=== PATIENT | male | born 1955 | race Caucasian/White ===

== ENCOUNTER 2018-01-15 05:09 | Inpatient (IN) | payer MEDICARE ==
[~2018-01-15 05:09] MED LIST: Ropivacaine 60 ML, Dexamethasone 8 MG, EPINEPHrine 0.4 MG, Sodium Chloride 0.9% 17.6 ML NERVRT SCH
[2018-01-15] MEDS ORDERED: Scopolamine 1.5 MG Transdermal Patch TOP SCH (05:45)
[2018-01-15] MEDS ORDERED: Gabapentin 300 MG Cap PO ONE (05:45)
[2018-01-15] MEDS ORDERED: Celecoxib 200 MG Cap PO ONE (05:45)
[2018-01-15] MEDS ORDERED: Dextrose 5%-Lactated Ringers 1,000 ML IV SCH ×3 (06:30→19:30)
[2018-01-15] MEDS ORDERED: Neostigmine Methylsulfate 1 MG/ML 5 ML Syringe ONE (07:14)
[2018-01-15] MEDS ORDERED: Rocuronium 50 MG/5 ML Vial ONE ×2 (07:14→08:44)
[2018-01-15] MEDS ORDERED: Propofol 200 MG/20 ML SDV ONE (07:14)
[2018-01-15] MEDS ORDERED: Ondansetron 4 MG/2 ML SDV ONE (07:14)
[2018-01-15] MEDS ORDERED: Dexamethasone 4 MG/ML SDV ONE (07:14)
[2018-01-15] MEDS ORDERED: Succinylcholine 200 MG/10 ML MDV ONE (07:14)
[2018-01-15] MEDS ORDERED: Glycopyrrolate 0.2 MG/ML 5 ML MDV ONE (07:14)
[2018-01-15] MEDS ORDERED: cefOXitin 2 GM in Sodium Chloride 0.9% 50 ML IV ONE (07:15)
[2018-01-15] MEDS ORDERED: Lactated Ringers 1,000 ML ONE (07:17)
[2018-01-15] MEDS ORDERED: Ketamine 500 MG/5 ML MDV IV SCH (07:30)
[2018-01-15] MEDS ORDERED: Lidocaine 0.4%/D5W 2 GM/500 ML BAG IV SCH (07:30)
[2018-01-15] MEDS ORDERED: Lidocaine 2% 100 MG/5 ML Syringe IVPUSH ONE (07:30)
[2018-01-15] MEDS ORDERED: ePHEDrine 50 MG/ML SDV ONE (08:10)
[2018-01-15] MEDS: cefOXitin 2 GM Vial ONE ×3 (08:28→09:45)
[2018-01-15] MEDS ORDERED: Insulin Aspart 100 Units/ML 3 ML Pen SUBCUT ONE (10:20)
[2018-01-15] MEDS ORDERED: Albuterol/Ipratropium 3.0-0.5 MG/3 ML Neb Soln NEB PRN (11:45)
[2018-01-15] MEDS ORDERED: Meperidine PF 100 MG/ML Syringe IM ONE (11:50)
[2018-01-15] MEDS ORDERED: hydrOXYzine HCl 100 MG/2 ML SDV IM ONE (11:50)
[2018-01-15] MEDS: Albuterol/Ipratropium 3.0-0.5 MG/3 ML Neb Soln NEB SCH ×4 (11:59→23:57)
[2018-01-15] MEDS ORDERED: Furosemide 20 MG/2 ML VIAL IVPUSH ONE (12:00)
[2018-01-15] MEDS ORDERED: Insulin Aspart 100 Units/ML 3 ML Pen SUBCUT PRN (12:00)
[2018-01-15] MEDS ORDERED: 50% Dextrose in Water 50 ML Syringe IVPUSH PRN (12:00)
[2018-01-15] MEDS ORDERED: Labetalol 20 MG/4 ML Syringe IVPUSH PRN (12:00)
[2018-01-15] MEDS ORDERED: diphenhydrAMINE 50 MG/ML SDV IVPUSH PRN (12:00)
[2018-01-15] MEDS ORDERED: Metoclopramide 10 MG/2 ML SDV IVPUSH PRN (12:00)
[2018-01-15] MEDS ORDERED: Glucagon,Human Recombinant 1 MG Vial IM PRN (12:00)
[2018-01-15] MEDS ORDERED: Ondansetron 4 MG/2 ML SDV IVPUSH PRN (12:00)
[2018-01-15] MEDS ORDERED: Gabapentin 250 MG/5 ML Solution ML 470 ML Bottle PO SCH (14:00)
[2018-01-15] MEDS: cefOXitin 2 GM in Sodium Chloride 0.9% 50 ML IV SCH ×2 (14:38→20:46)
[2018-01-15] MEDS: Pantoprazole 40 MG Vial IVPUSH SCH (14:43)
[2018-01-15] MEDS: Heparin Sodium 5,000 Units/ML Vial SUBCUT SCH (15:42)
[2018-01-15] MEDS ORDERED: MVI, Adult with Vitamin K 10 ML, Thiamine 200 MG, Chromium/Copper/Mang/Selen/Zn 1 ML in... IV SCH ×4 (16:00)
[2018-01-15] MEDS ORDERED: Furosemide 20 MG/2 ML VIAL IVPUSH STA (18:47)
[2018-01-15] MEDS ORDERED: Lidocaine 2% Jelly 10 ML Urojet MUCMEM ONE (19:00)
--- NOTE | 2018-01-15 19:52 | PCM.CONS ---
H&P History of Present Illness - General Date of Service: 01/15/18 Admit Problem/Dx: Admission Diagnosis/Problem Admission Diagnosis/Problem Bc-en-Y gastrojejunostomy Source of Information: Patient, RN History Limitations: Reports: No Limitations - History of Present Illness Initial Comments - Free Text/Narative: Gareth was admitted today for elective Bc-en-Y gastric bypass surgery. Postoperatively he has struggled with hypoxia which has worsened throughout the evening. I was asked to see him by Dr. Gutierres regarding hypoxic respiratory failure. Postoperatively initially he was on 6 L and then weaned down to 5 but over the course of the evening is now up to 8 L via simple mask. He has received 2 doses of furosemide, one very recently. Urine output since surgery has been around 1900 mL. He has not had any fevers. Blood pressure has been stable. Heart rate has been slowly increasing and is now around 110. He does not feel short of breath currently but did feel short of breath and was wheezing earlier in the evening. He does not have any abdominal pain currently. No nausea. He reports a history of swollen legs but has never been told that he has congestive heart failure. He did have an echocardiogram in November which showed a normal ejection fraction, concentric LVH and probably some diastolic dysfunction. Lower Back Pain Score (Numeric/FACES): 3 Left Abdomen Pain Score (Numeric/FACES): 8 - Related Data Allergies/Adverse Reactions: Allergies Allergy/AdvReac Type Severity Reaction Status Date / Time acetaminophen Allergy Other Verified 01/15/18 06:08 Home Medications: Home Meds Celecoxib [CeleBREX] 200 mg PO DAILY 01/13/18 [History] Lisinopril 40 mg PO DAILY 01/13/18 [History] Metoprolol Tartrate [Lopressor] 50 mg PO Q12HR 01/13/18 [History] Simvastatin [Zocor] 20 mg PO DAILY 01/13/18 [History] hydroCHLOROthiazide [Hydrochlorothiazide] 25 mg PO DAILY 01/13/18 [History] Furosemide [Lasix] 20 mg PO DAILY 01/15/18 [History] Past Medical History HEENT History: Reports: Hard of Hearing Cardiovascular History: Reports: High Cholesterol, Hypertension, Other (See Below) Other Cardiovascular History: leg edema Respiratory History: Reports: Sleep Apnea Gastrointestinal History: Reports: Other (See Below) Other Gastrointestinal History: acid reflux Musculoskeletal History: Reports: Back Pain, Chronic, Fracture, Other (See Below ) Other Musculoskeletal History: fractured collar bone, torn ligaments Neurological History: Reports: Head Trauma Psychiatric History: Reports: Depression Endocrine/Metabolic History: Reports: Obesity/BMI 30+ - Infectious Disease History Infectious Disease History: Reports: Chicken Pox - Past Surgical History Musculoskeletal Surgical History: Reports: Other (See Below) Social & Family History - Family History Cardiac: Denies: CAD - Tobacco Use Smoking Status *Q: Former Smoker Years of Tobacco use: 6 Packs/Tins Daily: 0.2 Used Tobacco, but Quit: Yes Month/Year Tobacco Last Used: December Second Hand Smoke Exposure: No - Caffeine Use Caffeine Use: Reports: None - Alcohol Use Alcohol Use History: Yes - Recreational Drug Use Recreational Drug Use: No H&P Review of Systems - Review of Systems: Review Of Systems: See Below Free Text/Narrative: A complete 12 point review of systems was obtained. Pertinent positives and negatives are noted in the history of present illness. All other systems were reviewed and were negative except as noted. Exam - Exam Exam: See Below - Vital Signs Vital Signs: Last Vital Signs Temp 36.6 C 01/15/18 19:00 Pulse 107 H 01/15/18 19:00 Resp 20 01/15/18 19:00 BP 127/68 01/15/18 19:00 Pulse Ox 92 L 01/15/18 19:00 Weight: 198.946 kg - Exam Quality Assessment: Supplemental Oxygen General: Alert, Oriented, Cooperative, Mild Distress HEENT: Conjunctiva Clear, Mucosa Moist & [place]. No: Scleral Icterus Neck: Supple, Trachea Midline. No: Lymphadenopathy Lungs: Crackles (both bases), Wheezing (very mild end expiratory wheezing and upper lungs). No: Normal Respiratory Effort (mild increased work of breathing) Cardiovascular: Regular Rhythm, Tachycardia. No: Systolic Murmur, Gallop/S3 GI/Abdominal Exam: Soft, No Distention, Other (obese. abdominal binder in place) Extremities: Pedal Edema (very mild bilateral ankle edema). No: Increased Warmth Peripheral Pulses: 1+: Dorsalis Pedis (L), Dorsalis Pedis (R) Skin: Warm, Dry Neuro Extensive - Mental Status: Alert, Oriented x3, Nl Response to Commands Neuro Extensive - Motor, Sensory, Reflexes: CN II-XII Intact, Tremor. No: Dysarthria, Abnormal Motor Psychiatric: Alert, Normal Affect - Patient Data Lab Results Last 24 hrs: Laboratory Results - last 24 hr 01/15/18 01/15/18 Range/Units 05:45 05:45 Hemoglobin A1c 6.9 H (4.5-6.2) % Blood Type A POSITIVE Gel Antibody Screen Negative Imaging Impressions Last 24 hrs: chest x-ray - images personally reviewed - there is evidence for pulmonary vascular congestion as well as cephalization of the vessels concerning for pulmonary edema. Heart size is normal. No pleural effusions are noted. No mass or obvious infiltrate. Consult PN Assessment/Plan POD#: 0 Procedures: Procedures BLOOD TYPING SEROLOGIC ABO (10/16/17) BLOOD TYPING SEROLOGIC RH(D) (10/16/17) COMPLETE CBC W/AUTO DIFF WBC (07/04/16) COMPREHEN METABOLIC PANEL (07/04/16) CT HEAD/BRAIN W/O DYE (05/05/16) EMERGENCY DEPT VISIT (07/04/16) EMERGENCY DEPT VISIT (07/04/16) EMERGENCY DEPT VISIT (05/05/16) EMERGENCY DEPT VISIT (03/04/16) EMERGENCY DEPT VISIT (08/14/15) HYDRATE IV INFUSION ADD-ON (05/05/16) HYDRATION IV INFUSION INIT (05/05/16) INSERT TEMP BLADDER CATH (07/04/16) RBC ANTIBODY SCREEN (10/16/17) ROUTINE VENIPUNCTURE (07/04/16) URINALYSIS AUTO W/SCOPE (07/04/16) (1) Congestive heart failure SNOMED Code(s): 22117620 Code(s): I50.9 - HEART FAILURE, UNSPECIFIED Current Visit: Yes Qualifiers: Heart failure type: diastolic Heart failure chronicity: acute Qualified Code(s): I50.31 - Acute diastolic (congestive) heart failure (2) Acute respiratory failure with hypoxia and hypercapnia SNOMED Code(s): 369047430 Code(s): J96.01 - ACUTE RESPIRATORY FAILURE WITH HYPOXIA; J96.02 - ACUTE RESPIRATORY FAILURE WITH HYPERCAPNIA Current Visit: Yes Problem List Initiated/Reviewed/Updated: Yes My Orders Last 24 Hours: My Active Orders 01/15/18 18:51 ABG [BLOOD GAS ARTERIAL] [BG] Stat 01/15/18 19:30 Dextrose 5%-Lactated Ringers 1,000 ml IV ASDIRECTED 01/15/18 19:34 BASIC METABOLIC PANEL,BMP [CHEM] Urgent 01/15/18 19:42 Transfer Patient (Change bed) [ADT] Routine Plan: ASSESSMENT AND PLAN - Acute congestive heart failure, probably diastolic - acute hypoxic respiratory failure with evidence for pulmonary edema on chest x-ray as well as pulmonary vascular congestion. Recent echocardiogram showed normal left ventricular function but did show concentric LVH and probably some diastolic dysfunction. He seems to be responding to that small doses of furosemide but unfortunately his respiratory status has been slowly declining. He is now up to 8 L of oxygen. Blood gases show. Pérez catheter was unable to be placed. -Minimize IV fluids -Close monitoring of urine output -supplement oxygen -Consider NIPPV -Repeat labs in the morning Acute respiratory failure with hypoxia and hypercapnia - likely secondary to congestive heart failure. Given high oxygen requirement and significant elevation of the CO2 noninvasive ventilation will be initiated. -start NIPPV -repeat ABG's one hour after NIPPV started -NIPPV in the am Morbid obesity status post gastric bypass surgery - minimal pain at this time. -Postoperative cares per surgical team Type 2 diabetes mellitus - Hemoglobin A1c 6.9. Currently on sliding scale insulin. -Continue current management Given acute respiratory failure with slow decline throughout the evening the patient will be transferred to the intensive care unit for closer monitoring. He may need noninvasive ventilation if his respiratory status does not improve with diuresis. Roberth Quijano MD Requesting Provider: Dr Gutierres Date Consult Requested: 01/15/18 Reason for Consult: hypoxic resp failure Patient History Reviewed: Yes Admission H&P Reviewed: Yes Notified Requestor: No Time Spent (in minutes): 60
[2018-01-15] MEDS ORDERED: LORazepam 2 MG/ML SDV IVPUSH PRN (19:54)
[2018-01-15] MEDS: Metoprolol Tartrate 50 MG Tab PO SCH (21:30)
[2018-01-16] MEDS ORDERED: Furosemide 20 MG/2 ML VIAL IVPUSH ONE (02:00)
[2018-01-16] MEDS: Heparin Sodium 5,000 Units/ML Vial SUBCUT SCH ×4 (02:08→23:42)
[2018-01-16] MEDS: cefOXitin 2 GM in Sodium Chloride 0.9% 50 ML IV SCH ×3 (02:11→13:36)
[2018-01-16] MEDS: Albuterol/Ipratropium 3.0-0.5 MG/3 ML Neb Soln NEB SCH ×6 (04:14→23:42)
[2018-01-16] MEDS: Celecoxib 200 MG Cap PO SCH (08:19)
[2018-01-16] MEDS: Furosemide 20 MG/2 ML VIAL IVPUSH SCH ×2 (08:21→19:30)
[2018-01-16] MEDS: Metoprolol Tartrate 50 MG Tab PO SCH ×2 (08:24→21:06)
--- NOTE | 2018-01-16 08:39 | PCM.CONSN ---
- General Info Date of Service: 01/16/18 Functional Status: Reports: Pain Controlled - Review of Systems General: Denies: Fever Pulmonary: Reports: Cough Systems Review Comment:: patient did require noninvasive ventilation throughout the night. He has been transitioned to nasal cannula this morning at the time of my evaluation. Oxygen saturations are in the low 90s on 4 L of supplemental oxygen. He reports that he feels much better and is breathing easier. He reports that his abdominal pain is well-controlled at this time. He has not had any fevers. He has done well with diuresis overnight. His PCO2 to is down to 53 this morning. - Patient Data Vitals - Most Recent: Last Vital Signs Temp 37.6 C 01/16/18 07:00 Pulse 98 01/16/18 08:24 Resp 14 01/16/18 07:00 BP 119/64 01/16/18 08:24 Pulse Ox 93 L 01/16/18 07:00 Weight - Most Recent: 198.946 kg I&O - Last 24 Hours: Intake & Output 01/15/18 01/16/18 01/16/18 22:59 06:59 14:59 Intake Total 1000 943 Output Total 1550 1400 Balance -550 -457 Lab Results Last 24 Hours: Laboratory Results - last 24 hr 01/15/18 01/15/18 01/15/18 Range/Units 18:51 19:34 21:30 WBC (4.5-11.0) K/uL RBC (4.30-5.90) M/uL Hgb (12.0-15.0) g/dL Hct (40.0-54.0) % MCV (80-98) fL MCH (27-31) pg MCHC (32-36) % Plt Count (150-400) K/uL Puncture Site Rt radial Lt radial ABG pH 7.268 L 7.275 L (7.350-7.450) ABG pCO2 70.7 H* 72.7 H* (35.0-42.0) mmHg ABG pO2 66.6 L 74.1 L (75.0-100.0) mmHg ABG HCO3 31.2 H 32.7 H (22.0-26.0) mmol/L ABG Total CO2 28.5 H 29.6 H (23.0-27.0) mmol/L ABG O2 Saturation 90.5 L 93.3 L (95.0-98.0) % ABG O2 Content 17.5 18.4 (15.0-23.0) %vol ABG Base Excess 2.5 3.7 mm/L ABG Hemoglobin 13.9 14.3 (13.5-18.0) g/dL ABG Oxyhemoglobin 89.1 91.7 % ABG Carboxyhemoglobin 0.9 0.9 (0.0-1.6) % ABG Methemoglobin 0.6 0.8 % Bert Test Passed Passed O2 Delivery Device Simple mask Bipap Oxygen Flow Rate L Sodium 135 L (140-148) mmol/L Potassium 4.6 (3.6-5.2) mmol/L Chloride 98 L (100-108) mmol/L Carbon Dioxide 29 (21-32) mmol/L Anion Gap 12.6 (5.0-14.0) mmol/L BUN 25 H D (7-18) mg/dL Creatinine 1.3 (0.8-1.3) mg/dL Est Cr Clr Drug Dosing 60.43 mL/min Estimated GFR (MDRD) 56 L (>60) Glucose 207 H (74-106) mg/dL Calcium 8.8 (8.5-10.1) mg/dL Phosphorus (2.5-4.9) mg/dL Magnesium (1.8-2.4) mg/dL Total Bilirubin (0.2-1.0) mg/dL AST (15-37) U/L ALT (12-78) U/L Alkaline Phosphatase (46-116) U/L NT-Pro-B Natriuret Pep (5-125) pg/mL Total Protein (6.4-8.2) g/dL Albumin (3.4-5.0) g/dL Globulin (2.3-3.5) g/dL Albumin/Globulin Ratio (1.2-2.2) 01/16/18 01/16/18 01/16/18 Range/Units 04:30 04:30 04:40 WBC 15.7 H (4.5-11.0) K/uL RBC 4.18 L (4.30-5.90) M/uL Hgb 13.1 D (12.0-15.0) g/dL Hct 38.5 L (40.0-54.0) % MCV 92 (80-98) fL MCH 31 (27-31) pg MCHC 34 (32-36) % Plt Count 259 (150-400) K/uL Puncture Site R brachial ABG pH 7.410 (7.350-7.450) ABG pCO2 53.8 H (35.0-42.0) mmHg ABG pO2 70.2 L (75.0-100.0) mmHg ABG HCO3 33.4 H (22.0-26.0) mmol/L ABG Total CO2 29.6 H (23.0-27.0) mmol/L ABG O2 Saturation 94.6 L (95.0-98.0) % ABG O2 Content 17.5 (15.0-23.0) %vol ABG Base Excess 7.6 mm/L ABG Hemoglobin 13.4 L (13.5-18.0) g/dL ABG Oxyhemoglobin 92.9 % ABG Carboxyhemoglobin 1.0 (0.0-1.6) % ABG Methemoglobin 0.8 % Bert Test O2 Delivery Device Bipap Oxygen Flow Rate L Sodium 136 L (140-148) mmol/L Potassium 4.7 (3.6-5.2) mmol/L Chloride 97 L (100-108) mmol/L Carbon Dioxide 32 (21-32) mmol/L Anion Gap 11.7 (5.0-14.0) mmol/L BUN 23 H (7-18) mg/dL Creatinine 1.2 (0.8-1.3) mg/dL Est Cr Clr Drug Dosing 65.46 mL/min Estimated GFR (MDRD) > 60 (>60) Glucose 173 H (74-106) mg/dL Calcium 8.7 (8.5-10.1) mg/dL Phosphorus 4.1 (2.5-4.9) mg/dL Magnesium 1.6 L (1.8-2.4) mg/dL Total Bilirubin 0.6 (0.2-1.0) mg/dL AST 26 (15-37) U/L ALT 44 (12-78) U/L Alkaline Phosphatase 68 (46-116) U/L NT-Pro-B Natriuret Pep 87 (5-125) pg/mL Total Protein 7.1 (6.4-8.2) g/dL Albumin 3.0 L (3.4-5.0) g/dL Globulin 4.1 H (2.3-3.5) g/dL Albumin/Globulin Ratio 0.7 L (1.2-2.2) Med Orders - Current: Current Medications Albuterol/Ipratropium (Duoneb 3.0-0.5 Mg/3 Ml) 3 ml NEB Q4H [facility] Last Admin: 01/16/18 07:51 Dose: 3 ml Albuterol/Ipratropium (Duoneb 3.0-0.5 Mg/3 Ml) 3 ml NEB Q2H PRN PRN Reason: Wheezing Last Admin: 01/15/18 18:40 Dose: 3 ml Celecoxib (Celebrex) 200 mg PO DAILY@0800 [facility] Last Admin: 01/16/18 08:19 Dose: 200 mg Cyanocobalamin (Vitamin B12) 1,000 mcg IM ONETIME ONE Stop: 01/17/18 09:01 Dextrose/Water (Dextrose 50% In Water) 50 ml IVPUSH ONETIME PRN PRN Reason: ACCUCHECK LESS THAN 70 Diphenhydramine HCl (Benadryl) 25 - 50 mg IVPUSH Q4H PRN PRN Reason: ITCHING Furosemide (Lasix) 20 mg IVPUSH Q12H [facility] Stop: 01/16/18 20:01 Last Admin: 01/16/18 08:21 Dose: 20 mg Glucagon (Glucagen) 1 mg IM ONETIME PRN PRN Reason: ACCUCHECK LESS THAN 70 Heparin Sodium (Porcine) (Heparin Sodium) 5,000 units SUBCUT Q8H [facility] Last Admin: 01/16/18 08:25 Dose: 5,000 units Hydroxyzine HCl (Vistaril) 75 - 100 mg IM Q4H PRN PRN Reason: pain Multivitamins/Minerals 10 ml/Thiamine HCl 200 mg/ Chromium/Copper/Manganese/ Seleni/Zn 1 ml/ Dextrose/Lactated Ringer's 1,013 mls @ 174.999 mls/hr IV DAILY@ 1600 [facility] Last Admin: 01/15/18 15:42 Dose: 174.999 mls/hr Cefoxitin Sodium 2 gm/ Sodium (Chloride) 50 mls @ 100 mls/hr IV Q6H [facility] Stop: 01/16/18 14:29 Last Admin: 01/16/18 07:27 Dose: 100 mls/hr Dextrose/Lactated Ringer's (Dextrose 5%-Lactated Ringers) 1,000 mls @ 25 mls/ hr IV ASDIRECTED [facility] Magnesium Sulfate 2 gm/ Premix 50 mls @ 25 mls/hr IV Q6H [facility] Stop: 01/18/18 05:59 Insulin Aspart (Novolog) 0 unit SUBCUT Q6H PRN; Protocol PRN Reason: PER CORRECTIONAL DOSING Labetalol HCl (Normodyne) 5 - 15 mg IVPUSH Q1H PRN PRN Reason: SBP over 160 OR DBP over 95 Lisinopril (Prinivil) 40 mg PO DAILY [facility] Lorazepam (Ativan) 0.5 mg IVPUSH Q2H PRN PRN Reason: anxiety Metoclopramide HCl (Reglan) 10 mg IVPUSH Q6H PRN PRN Reason: NAUSEA NOT CONTROL BY ZOFRAN Metoprolol Tartrate (Lopressor) 50 mg PO BID [facility] Last Admin: 01/16/18 08:24 Dose: 50 mg Miscellaneous Information (Remove Patch) 1 ea TRDERM ONETIME ONE Stop: 01/17/18 10:01 Scopolamine Patch (Check) 1 each TOP DAILY [facility] Stop: 01/17/18 12:01 Ondansetron HCl (Zofran) 4 mg IVPUSH Q4H PRN PRN Reason: Nausea/Vomiting Pantoprazole Sodium (Protonix Iv) 40 mg IVPUSH Q24H [facility] Last Admin: 01/15/18 14:43 Dose: 40 mg Scopolamine (Transderm-Scop) 1.5 mg TOP Q72H [facility] Stop: 01/17/18 09:00 Last Admin: 01/15/18 06:04 Dose: 1.5 mg Discontinued Medications Cefoxitin Sodium (Mefoxin) Confirm Administered Dose 2 gm .ROUTE .STK-MED ONE Stop: 01/15/18 06:51 Last Admin: 01/15/18 09:45 Dose: 2 gm Celecoxib (Celebrex) 200 mg PO ONETIME ONE Stop: 01/15/18 05:46 Last Admin: 01/15/18 06:04 Dose: 200 mg Ropivacaine 60 ml/Dexamethasone 8 mg/Epinephrine HCl 0.4 mg/ Sodium Chloride 17.6 ml 0 ml NERVRT ASDIRECTED [facility] Last Admin: 01/15/18 08:13 Dose: 100 syringe Dexamethasone (Dexamethasone) Confirm Administered Dose 4 mg .ROUTE .STK-MED ONE Stop: 01/15/18 07:15 Ephedrine Sulfate (Ephedrine Sulfate) Confirm Administered Dose 50 mg .ROUTE .[facility] ONE Stop: 01/15/18 08:11 Fentanyl Citrate (Fentanyl) Confirm Administered Dose 500 mcg .ROUTE .[facility] ONE Stop: 01/15/18 07:14 Furosemide (Lasix) 20 mg IVPUSH ONETIME ONE Stop: 01/15/18 12:01 Last Admin: 01/15/18 12:15 Dose: 20 mg Furosemide (Lasix) 20 mg IVPUSH ONETIME STA Stop: 01/15/18 18:48 Last Admin: 01/15/18 19:02 Dose: 20 mg Furosemide (Lasix) 20 mg IVPUSH NOW ONE Stop: 01/16/18 02:01 Last Admin: 01/16/18 02:05 Dose: 20 mg Gabapentin (Neurontin) 300 mg PO ONETIME ONE Stop: 01/15/18 05:46 Last Admin: 01/15/18 06:04 Dose: 300 mg Gabapentin (Neurontin) 300 mg PO TID [facility] Last Admin: 01/15/18 14:38 Dose: 300 mg Glycopyrrolate (Robinul) Confirm Administered Dose 1 mg .ROUTE .[facility] ONE Stop: 01/15/18 07:15 Hydroxyzine HCl (Vistaril) 100 mg IM ONETIME ONE Stop: 01/15/18 11:51 Last Admin: 01/15/18 12:04 Dose: 100 mg Cefoxitin Sodium 2 gm/ Sodium (Chloride) 50 mls @ 100 mls/hr IV ONETIME ONE Stop: 01/15/18 07:44 Last Admin: 01/15/18 07:32 Dose: 100 mls/hr Dextrose/Lactated Ringer's (Dextrose 5%-Lactated Ringers) 1,000 mls @ 100 mls/ hr IV ASDIRECTED [facility] Last Admin: 01/15/18 06:41 Dose: 100 mls/hr Lidocaine HCl/Dextrose (Lidocaine 2 Gm/D5w 500 Ml) 2 gm in 500 mls @ 30 mls/hr IV .[id number] [facility] Stop: 01/16/18 00:09 Last Admin: 01/15/18 12:23 Dose: 2 mg/min, 30 mls/hr Ketamine HCl 100 mg/ Sodium (Chloride) 100 mls @ 21.3 mls/hr IV ASDIRECTED [facility] Insulin Human Regular 100 unit (/ Sodium Chloride) 100 mls @ 0 mls/hr IV TITRATE TYLER; Protocol Lactated Ringer's (Ringers, Lactated) Confirm Administered Dose 1,000 mls @ as directed .ROUTE .STK-MED ONE Stop: 01/15/18 07:18 Dextrose/Lactated Ringer's (Dextrose 5%-Lactated Ringers) 1,000 mls @ 175.004 mls/hr IV ASDIRECTED [facility] Insulin Aspart (Novolog) 5 unit SUBCUT ONETIME ONE Stop: 01/15/18 10:21 Last Admin: 01/15/18 10:22 Dose: 5 units Ketamine HCl (Ketalar) 35 mg IV ASDIRECTED [facility] Lidocaine HCl (Xylocaine 2%) 150 mg IVPUSH ONETIME ONE Stop: 01/15/18 07:31 Last Admin: 01/15/18 12:24 Dose: Not Given Lidocaine HCl (Xylocaine 2% Jelly) 10 ml MUCMEM STAT ONE Stop: 01/15/18 19:01 Last Admin: 01/15/18 19:56 Dose: Not Given Meperidine HCl (Demerol) 100 mg IM ONETIME ONE Stop: 01/15/18 11:51 Last Admin: 01/15/18 12:04 Dose: 100 mg Neostigmine Methylsulfate (Neostigmine) Confirm Administered Dose 5 mg .ROUTE .STK-MED ONE Stop: 01/15/18 07:15 Ondansetron HCl (Zofran) Confirm Administered Dose 4 mg .ROUTE .STK-MED ONE Stop: 01/15/18 07:15 Propofol (Diprivan 20 Ml) Confirm Administered Dose 200 mg .ROUTE .STK-MED ONE Stop: 01/15/18 07:15 Rocuronium [place] (Zemuron) Confirm Administered Dose 50 mg .ROUTE .STK-MED ONE Stop: 01/15/18 07:15 Rocuronium [place] (Zemuron) Confirm Administered Dose 50 mg .ROUTE .STK-MED ONE Stop: 01/15/18 08:45 Sodium Chloride (Normal Saline) 500 ml IRR .[facility] [employer]-MED ONE Stop: 01/15/18 09:46 Last Admin: 01/15/18 09:45 Dose: 500 ml Succinylcholine Chloride (Quelicin) Confirm Administered Dose 200 mg .ROUTE .STK -MED ONE Stop: 01/15/18 07:15 - Exam Quality Assessment: Supplemental Oxygen General: Alert, Oriented, Cooperative, No Acute Distress Neck: Supple Lungs: Clear to Auscultation, Normal Respiratory Effort. No: Crackles, Wheezing Cardiovascular: Regular Rate, Regular Rhythm GI/Abdominal Exam: Soft, No Distention Extremities: No Pedal Edema Psy/Mental Status: Alert, Normal Affect Consult PN Assessment/Plan POD#: 1 Procedures: Procedures BLOOD TYPING SEROLOGIC ABO (10/16/17) BLOOD TYPING SEROLOGIC RH(D) (10/16/17) COMPLETE CBC W/AUTO DIFF WBC (07/04/16) COMPREHEN METABOLIC PANEL (07/04/16) CT HEAD/BRAIN W/O DYE (05/05/16) EMERGENCY DEPT VISIT (07/04/16) EMERGENCY DEPT VISIT (07/04/16) EMERGENCY DEPT VISIT (05/05/16) EMERGENCY DEPT VISIT (03/04/16) EMERGENCY DEPT VISIT (08/14/15) HYDRATE IV INFUSION ADD-ON (05/05/16) HYDRATION IV INFUSION INIT (05/05/16) INSERT TEMP BLADDER CATH (07/04/16) RBC ANTIBODY SCREEN (10/16/17) ROUTINE VENIPUNCTURE (07/04/16) URINALYSIS AUTO W/SCOPE (07/04/16) (1) Congestive heart failure SNOMED Code(s): 03791672 Code(s): I50.9 - HEART FAILURE, UNSPECIFIED Current Visit: Yes Qualifiers: Heart failure type: diastolic Heart failure chronicity: acute Qualified Code(s): I50.31 - Acute diastolic (congestive) heart failure (2) Acute respiratory failure with hypoxia and hypercapnia SNOMED Code(s): 384818803 Code(s): J96.01 - ACUTE RESPIRATORY FAILURE WITH HYPOXIA; J96.02 - ACUTE RESPIRATORY FAILURE WITH HYPERCAPNIA Current Visit: Yes Problem List Initiated/Reviewed/Updated: Yes My Orders Last 24 Hours: My Active Orders 01/15/18 19:30 Dextrose 5%-Lactated Ringers 1,000 ml IV ASDIRECTED 01/15/18 19:42 Transfer Patient (Change bed) [ADT] Routine 01/15/18 19:54 LORazepam [Ativan] 0.5 mg IVPUSH Q2H PRN 01/16/18 05:00 Chest 1V Frontal [CR] Timed 01/16/18 08:00 Furosemide [Lasix] 20 mg IVPUSH Q12H Plan: ASSESSMENT AND PLAN - Acute congestive heart failure, probably diastolic - acute hypoxic respiratory failure with evidence for pulmonary edema on chest x-ray as well as pulmonary vascular congestion. much improved overnight following diuresis but still requiring supplemental oxygen. -Minimize IV fluids -furosemide scheduled this morning and again tonight -Close monitoring of urine output -supplement oxygen -Consider NIPPV again tonight if needed -Repeat labs in the morning Acute respiratory failure with hypoxia and hypercapnia - likely secondary to congestive heart failure. PCO2 is improving with diuresis and pH is normal. -NIPPV if needed overnight -supplement oxygen as needed Morbid obesity status post gastric bypass surgery - pain well-controlled. -Postoperative cares per surgical team Type 2 diabetes mellitus - Hemoglobin A1c 6.9. Currently on sliding scale insulin. -Continue current management Patient will remain in the intensive care unit at least through the morning and transfer back to the floor will depend on progress throughout the day. Clinically he is doing much better. Roberth Quijano MD
[2018-01-16] MEDS: Lisinopril 20 MG Tab PO SCH (08:48)
[2018-01-16] MEDS: SCOPOLAMINE PATCH CHECK TOP SCH (08:54)
--- NOTE | 2018-01-16 08:57 | CR ---
CHEST: Portable CLINICAL HISTORY:SOB, hypoxia COMPARISON:None FINDINGS: Study is limited due to AP supine position and patient's large size. Heart appears mildly enlarged. Pulmonary vascularity is cephalized. The no infiltrates are seen. IMPRESSION: Limited study Mild cardiomegaly with some pulmonary venous cephalization. This may represent pulmonary venous hype rtension
--- NOTE | 2018-01-16 08:59 | CR ---
CHEST: Portable CLINICAL HISTORY:SOB, hypoxia COMPARISON:01/15/2018 FINDINGS: Study is limited due to the supine AP position and 0.20 level. Heart is mildly enlarged. P ulmonary vascularity is mildly cephalized. No infiltrates are seen.. IMPRESSION: Limited study Mild cardiomegaly with mild vascular cephalization suggests pulmonary venous hypertension
[2018-01-16] MEDS: Magnesium Sulfate/Water 2 GM in Premix Bag 1 BAG IV SCH ×3 (09:24→21:10)
[2018-01-16] MEDS: Pantoprazole 40 MG Vial IVPUSH SCH (11:54)
[2018-01-16] MEDS: hydrOXYzine HCl 100 MG/2 ML SDV IM PRN (23:54)
[2018-01-17] MEDS: Albuterol/Ipratropium 3.0-0.5 MG/3 ML Neb Soln NEB SCH ×5 (03:33→20:34)
[2018-01-17] MEDS: Magnesium Sulfate/Water 2 GM in Premix Bag 1 BAG IV SCH ×4 (03:34→21:27)
[2018-01-17] MEDS: Heparin Sodium 5,000 Units/ML Vial SUBCUT SCH ×2 (08:19→16:46)
[2018-01-17] MEDS: Celecoxib 200 MG Cap PO SCH (08:20)
[2018-01-17] MEDS: Metoprolol Tartrate 50 MG Tab PO SCH ×2 (08:20→20:34)
[2018-01-17] MEDS: Lisinopril 20 MG Tab PO SCH (08:21)
[2018-01-17] MEDS: SCOPOLAMINE PATCH CHECK TOP SCH (08:21)
--- NOTE | 2018-01-17 08:39 | PCM.CONSN ---
- General Info Date of Service: 01/17/18 Functional Status: Reports: Pain Controlled, Tolerating Diet - Review of Systems General: Denies: Fever Pulmonary: Denies: Shortness of Breath Systems Review Comment:: There were no acute events overnight. He did use noninvasive ventilation overnight. Respiratory status has been stable. He is on 2 L of supplemental oxygen this morning. He does not feel short of breath. Abdominal pain has been well-controlled. He is passing gas but has not had a bowel movement. - Patient Data Vitals - Most Recent: Last Vital Signs Temp 36.2 C 01/17/18 08:00 Pulse 77 01/17/18 08:20 Resp 15 01/17/18 08:00 BP 116/65 01/17/18 08:20 Pulse Ox 90 L 01/17/18 08:00 Weight - Most Recent: 198.946 kg I&O - Last 24 Hours: Intake & Output 01/16/18 01/17/18 01/17/18 22:59 06:59 14:59 Intake Total 120 752 Output Total 805 420 Balance -685 332 Lab Results Last 24 Hours: Laboratory Results - last 24 hr 01/17/18 01/17/18 01/17/18 Range/Units 04:00 04:00 04:00 WBC 9.3 (4.5-11.0) K/uL RBC 3.84 L (4.30-5.90) M/uL Hgb 11.7 L (12.0-15.0) g/dL Hct 36.8 L (40.0-54.0) % MCV 96 (80-98) fL MCH 31 (27-31) pg MCHC 32 (32-36) % Plt Count 225 (150-400) K/uL Puncture Site Rt radial ABG pH 7.447 (7.350-7.450) ABG pCO2 54.8 H (35.0-42.0) mmHg ABG pO2 71.2 L (75.0-100.0) mmHg ABG HCO3 37.2 H (22.0-26.0) mmol/L ABG Total CO2 33.4 H (23.0-27.0) mmol/L ABG O2 Saturation 95.1 (95.0-98.0) % ABG O2 Content 15.4 (15.0-23.0) %vol ABG Base Excess 11.5 mm/L ABG Hemoglobin 11.9 L (13.5-18.0) g/dL ABG Oxyhemoglobin 92.2 % ABG Carboxyhemoglobin 2.3 H (0.0-1.6) % ABG Methemoglobin 0.7 % Bert Test Passed O2 Delivery Device Bipap Oxygen Flow Rate L Sodium 138 L (140-148) mmol/L Potassium 4.0 (3.6-5.2) mmol/L Chloride 98 L (100-108) mmol/L Carbon Dioxide 35 H (21-32) mmol/L Anion Gap 9.0 (5.0-14.0) mmol/L BUN 27 H (7-18) mg/dL Creatinine 1.0 (0.8-1.3) mg/dL Est Cr Clr Drug Dosing 78.56 mL/min Estimated GFR (MDRD) > 60 (>60) Glucose 138 H (74-106) mg/dL Calcium 8.1 L (8.5-10.1) mg/dL Phosphorus 2.7 (2.5-4.9) mg/dL Total Bilirubin 0.7 (0.2-1.0) mg/dL AST 28 (15-37) U/L ALT 42 (12-78) U/L Alkaline Phosphatase 60 (46-116) U/L NT-Pro-B Natriuret Pep 43 (5-125) pg/mL Total Protein 6.7 (6.4-8.2) g/dL Albumin 2.8 L (3.4-5.0) g/dL Globulin 3.9 H (2.3-3.5) g/dL Albumin/Globulin Ratio 0.7 L (1.2-2.2) Med Orders - Current: Current Medications Albuterol/Ipratropium (Duoneb 3.0-0.5 Mg/3 Ml) 3 ml NEB Q4H [facility] Last Admin: 01/17/18 07:52 Dose: 3 ml Albuterol/Ipratropium (Duoneb 3.0-0.5 Mg/3 Ml) 3 ml NEB Q2H PRN PRN Reason: Wheezing Last Admin: 01/15/18 18:40 Dose: 3 ml Celecoxib (Celebrex) 200 mg PO DAILY@0800 [facility] Last Admin: 01/17/18 08:20 Dose: 200 mg Cyanocobalamin (Vitamin B12) 1,000 mcg IM ONETIME ONE Stop: 01/17/18 09:01 Last Admin: 01/17/18 08:20 Dose: 1,000 mcg Dextrose/Water (Dextrose 50% In Water) 50 ml IVPUSH ONETIME PRN PRN Reason: ACCUCHECK LESS THAN 70 Diphenhydramine HCl (Benadryl) 25 - 50 mg IVPUSH Q4H PRN PRN Reason: ITCHING Glucagon (Glucagen) 1 mg IM ONETIME PRN PRN Reason: ACCUCHECK LESS THAN 70 Heparin Sodium (Porcine) (Heparin Sodium) 5,000 units SUBCUT Q8H [facility] Last Admin: 01/17/18 08:19 Dose: 5,000 units Hydroxyzine HCl (Vistaril) 75 - 100 mg IM Q4H PRN PRN Reason: pain Last Admin: 01/16/18 23:54 Dose: 75 mg Dextrose/Lactated Ringer's (Dextrose 5%-Lactated Ringers) 1,000 mls @ 25 mls/ hr IV ASDIRECTED [facility] Last Admin: 01/16/18 11:56 Dose: 25 mls/hr Magnesium Sulfate 2 gm/ Premix 50 mls @ 25 mls/hr IV Q6H [facility] Stop: 01/18/18 05:59 Last Admin: 01/17/18 03:34 Dose: 25 mls/hr Insulin Aspart (Novolog) 0 unit SUBCUT Q6H PRN; Protocol PRN Reason: PER CORRECTIONAL DOSING Labetalol HCl (Normodyne) 5 - 15 mg IVPUSH Q1H PRN PRN Reason: SBP over 160 OR DBP over 95 Lisinopril (Prinivil) 40 mg PO DAILY [facility] Last Admin: 01/17/18 08:21 Dose: Not Given Lorazepam (Ativan) 0.5 mg IVPUSH Q2H PRN PRN Reason: anxiety Metoclopramide HCl (Reglan) 10 mg IVPUSH Q6H PRN PRN Reason: NAUSEA NOT CONTROL BY ZOFRAN Metoprolol Tartrate (Lopressor) 50 mg PO BID [facility] Last Admin: 01/17/18 08:20 Dose: 50 mg Miscellaneous Information (Remove Patch) 1 ea TRDERM ONETIME ONE Stop: 01/17/18 10:01 Scopolamine Patch (Check) 1 each TOP DAILY [facility] Stop: 01/17/18 12:01 Last Admin: 01/17/18 08:21 Dose: Not Given Ondansetron HCl (Zofran) 4 mg IVPUSH Q4H PRN PRN Reason: Nausea/Vomiting Pantoprazole Sodium (Protonix Iv) 40 mg IVPUSH Q24H [facility] Last Admin: 01/16/18 11:54 Dose: 40 mg Scopolamine (Transderm-Scop) 1.5 mg TOP Q72H [facility] Stop: 01/17/18 09:00 Last Admin: 01/15/18 06:04 Dose: 1.5 mg Discontinued Medications Cefoxitin Sodium (Mefoxin) Confirm Administered Dose 2 gm .ROUTE .STK-MED ONE Stop: 01/15/18 06:51 Last Admin: 01/15/18 09:45 Dose: 2 gm Celecoxib (Celebrex) 200 mg PO ONETIME ONE Stop: 01/15/18 05:46 Last Admin: 01/15/18 06:04 Dose: 200 mg Ropivacaine 60 ml/Dexamethasone 8 mg/Epinephrine HCl 0.4 mg/ Sodium Chloride 17.6 ml 0 ml NERVRT ASDIRECTED [facility] Last Admin: 01/15/18 08:13 Dose: 100 syringe Dexamethasone (Dexamethasone) Confirm Administered Dose 4 mg .ROUTE .STK-MED ONE Stop: 01/15/18 07:15 Ephedrine Sulfate (Ephedrine Sulfate) Confirm Administered Dose 50 mg .ROUTE .STK-MED ONE Stop: 01/15/18 08:11 Fentanyl Citrate (Fentanyl) Confirm Administered Dose 500 mcg .ROUTE .STK-MED ONE Stop: 01/15/18 07:14 Furosemide (Lasix) 20 mg IVPUSH ONETIME ONE Stop: 01/15/18 12:01 Last Admin: 01/15/18 12:15 Dose: 20 mg Furosemide (Lasix) 20 mg IVPUSH ONETIME STA Stop: 01/15/18 18:48 Last Admin: 01/15/18 19:02 Dose: 20 mg Furosemide (Lasix) 20 mg IVPUSH NOW ONE Stop: 01/16/18 02:01 Last Admin: 01/16/18 02:05 Dose: 20 mg Furosemide (Lasix) 20 mg IVPUSH Q12H [facility] Stop: 01/16/18 20:01 Last Admin: 01/16/18 19:30 Dose: 20 mg Gabapentin (Neurontin) 300 mg PO ONETIME ONE Stop: 01/15/18 05:46 Last Admin: 01/15/18 06:04 Dose: 300 mg Gabapentin (Neurontin) 300 mg PO TID [facility] Last Admin: 01/15/18 14:38 Dose: 300 mg Glycopyrrolate (Robinul) Confirm Administered Dose 1 mg .ROUTE .STK-[facility] ONE Stop: 01/15/18 07:15 Hydroxyzine HCl (Vistaril) 100 mg IM ONETIME ONE Stop: 01/15/18 11:51 Last Admin: 01/15/18 12:04 Dose: 100 mg Cefoxitin Sodium 2 gm/ Sodium (Chloride) 50 mls @ 100 mls/hr IV ONETIME ONE Stop: 01/15/18 07:44 Last Admin: 01/15/18 07:32 Dose: 100 mls/hr Dextrose/Lactated Ringer's (Dextrose 5%-Lactated Ringers) 1,000 mls @ 100 mls/ hr IV ASDIRECTED [facility] Last Admin: 01/15/18 06:41 Dose: 100 mls/hr Lidocaine HCl/Dextrose (Lidocaine 2 Gm/D5w 500 Ml) 2 gm in 500 mls @ 30 mls/hr IV .[id number] [facility] Stop: 01/16/18 00:09 Last Admin: 01/15/18 12:23 Dose: 2 mg/min, 30 mls/hr Ketamine HCl 100 mg/ Sodium (Chloride) 100 mls @ 21.3 mls/hr IV ASDIRECTED [facility] Insulin Human Regular 100 unit (/ Sodium Chloride) 100 mls @ 0 mls/hr IV TITRATE TYLER; Protocol Lactated Ringer's (Ringers, Lactated) Confirm Administered Dose 1,000 mls @ as directed .ROUTE .STK-[facility] ONE Stop: 01/15/18 07:18 Dextrose/Lactated Ringer's (Dextrose 5%-Lactated Ringers) 1,000 mls @ 175.004 mls/hr IV ASDIRECTED [facility] Multivitamins/Minerals 10 ml/Thiamine HCl 200 mg/ Chromium/Copper/Manganese/ Seleni/Zn 1 ml/ Dextrose/Lactated Ringer's 1,013 mls @ 174.999 mls/hr IV DAILY@ 1600 [facility] Last Admin: 01/15/18 15:42 Dose: 174.999 mls/hr Cefoxitin Sodium 2 gm/ Sodium (Chloride) 50 mls @ 100 mls/hr IV Q6H [facility] Stop: 01/16/18 14:29 Last Admin: 01/16/18 13:36 Dose: 100 mls/hr Insulin Aspart (Novolog) 5 unit SUBCUT ONETIME ONE Stop: 01/15/18 10:21 Last Admin: 01/15/18 10:22 Dose: 5 units Ketamine HCl (Ketalar) 35 mg IV ASDIRECTED [facility] Lidocaine HCl (Xylocaine 2%) 150 mg IVPUSH ONETIME ONE Stop: 01/15/18 07:31 Last Admin: 01/15/18 12:24 Dose: Not Given Lidocaine HCl (Xylocaine 2% Jelly) 10 ml MUCMEM STAT ONE Stop: 01/15/18 19:01 Last Admin: 01/15/18 19:56 Dose: Not Given Meperidine HCl (Demerol) 100 mg IM ONETIME ONE Stop: 01/15/18 11:51 Last Admin: 01/15/18 12:04 Dose: 100 mg Neostigmine Methylsulfate (Neostigmine) Confirm Administered Dose 5 mg .ROUTE .STK-MED ONE Stop: 01/15/18 07:15 Ondansetron HCl (Zofran) Confirm Administered Dose 4 mg .ROUTE .STK-MED ONE Stop: 01/15/18 07:15 Propofol (Diprivan 20 Ml) Confirm Administered Dose 200 mg .ROUTE .STK-MED ONE Stop: 01/15/18 07:15 Rocuronium [place] (Zemuron) Confirm Administered Dose 50 mg .ROUTE .STK-MED ONE Stop: 01/15/18 07:15 Rocuronium [place] (Zemuron) Confirm Administered Dose 50 mg .ROUTE .STK-MED ONE Stop: 01/15/18 08:45 Sodium Chloride (Normal Saline) 500 ml IRR .STK-MED ONE Stop: 01/15/18 09:46 Last Admin: 01/15/18 09:45 Dose: 500 ml Succinylcholine Chloride (Quelicin) Confirm Administered Dose 200 mg .ROUTE .STK -MED ONE Stop: 01/15/18 07:15 - Exam Quality Assessment: Supplemental Oxygen General: Alert, Oriented, Cooperative, No Acute Distress Neck: Supple Lungs: Clear to Auscultation, Normal Respiratory Effort Cardiovascular: Regular Rate, Regular Rhythm GI/Abdominal Exam: Soft, No Distention Extremities: No Pedal Edema Psy/Mental Status: Alert, Normal Affect Consult PN Assessment/Plan POD#: 2 Procedures: Procedures BLOOD TYPING SEROLOGIC ABO (10/16/17) BLOOD TYPING SEROLOGIC RH(D) (10/16/17) COMPLETE CBC W/AUTO DIFF WBC (07/04/16) COMPREHEN METABOLIC PANEL (07/04/16) CT HEAD/BRAIN W/O DYE (05/05/16) EMERGENCY DEPT VISIT (07/04/16) EMERGENCY DEPT VISIT (07/04/16) EMERGENCY DEPT VISIT (05/05/16) EMERGENCY DEPT VISIT (03/04/16) EMERGENCY DEPT VISIT (08/14/15) HYDRATE IV INFUSION ADD-ON (05/05/16) HYDRATION IV INFUSION INIT (05/05/16) INSERT TEMP BLADDER CATH (07/04/16) RBC ANTIBODY SCREEN (10/16/17) ROUTINE VENIPUNCTURE (07/04/16) URINALYSIS AUTO W/SCOPE (07/04/16) (1) Congestive heart failure SNOMED Code(s): 12111121 Code(s): I50.9 - HEART FAILURE, UNSPECIFIED Current Visit: Yes Qualifiers: Heart failure type: diastolic Heart failure chronicity: acute Qualified Code(s): I50.31 - Acute diastolic (congestive) heart failure (2) Acute respiratory failure with hypoxia and hypercapnia SNOMED Code(s): 662246090 Code(s): J96.01 - ACUTE RESPIRATORY FAILURE WITH HYPOXIA; J96.02 - ACUTE RESPIRATORY FAILURE WITH HYPERCAPNIA Current Visit: Yes Problem List Initiated/Reviewed/Updated: Yes Plan: ASSESSMENT AND PLAN - Acute congestive heart failure, probably diastolic - acute hypoxic respiratory failure with evidence for pulmonary edema on chest x-ray as well as pulmonary vascular congestion. Ongoing improvement with diuresis. Still mildly hypervolemic but volume status has been slowly improving. Did use noninvasive ventilation overnight. -Minimize IV fluids -furosemide scheduled this morning and again tonight -Close monitoring of urine output -supplement oxygen -Transition to CPAP tonight -Repeat labs in the morning Acute respiratory failure with hypoxia and hypercapnia - likely secondary to congestive heart failure. PCO2 is stable compared to yesterday and with his normal pH this is probably his baseline with a PCO2 of around 50. -CPAP tonight and with -supplement oxygen as needed Morbid obesity status post gastric bypass surgery - pain well-controlled. -Postoperative cares per surgical team Type 2 diabetes mellitus - Hemoglobin A1c 6.9. Currently on sliding scale insulin and sugars slowly improving but not quite normal. -Continue current management Roberth Quijano MD
[2018-01-17] MEDS ORDERED: Cyanocobalamin (Vitamin B12) 1,000 MCG/ML SDV IM ONE (09:00)
[2018-01-17] MEDS ORDERED: Furosemide 20 MG/2 ML VIAL IVPUSH ONE ×2 (10:00→18:00)
[2018-01-17] MEDS: Pantoprazole 40 MG Vial IVPUSH SCH (12:46)
[2018-01-18] MEDS: Albuterol/Ipratropium 3.0-0.5 MG/3 ML Neb Soln NEB SCH ×6 (00:03→20:25)
[2018-01-18] MEDS: Heparin Sodium 5,000 Units/ML Vial SUBCUT SCH ×3 (00:03→17:02)
[2018-01-18] MEDS: Magnesium Sulfate/Water 2 GM in Premix Bag 1 BAG IV SCH (03:33)
[2018-01-18] MEDS: Celecoxib 200 MG Cap PO SCH (08:12)
[2018-01-18] MEDS: Furosemide 20 MG/2 ML VIAL IVPUSH SCH ×2 (08:14→17:02)
[2018-01-18] MEDS: Docusate Sodium 100 MG Cap PO SCH ×2 (08:17→20:22)
[2018-01-18] MEDS: Bisacodyl 5 MG Tab PO SCH ×2 (08:18→20:22)
[2018-01-18] MEDS: Metoprolol Tartrate 50 MG Tab PO SCH ×2 (08:18→20:23)
[2018-01-18] MEDS: Lisinopril 20 MG Tab PO SCH (08:19)
[2018-01-18] MEDS: hydrOXYzine HCl 100 MG/2 ML SDV IM PRN (09:20)
--- NOTE | 2018-01-18 09:39 | PCM.CONSN ---
- General Info Date of Service: 01/18/18 Functional Status: Reports: Pain Controlled, Tolerating Diet - Review of Systems General: Denies: Fever Pulmonary: Denies: Shortness of Breath Systems Review Comment:: There were no acute events overnight. Patient did uses C Pap overnight and required a small amount of supplemental oxygen. He is off oxygen this morning. Abdominal pain is well-controlled. He has not had any fevers. He is passing gas but has not had a bowel movement. - Patient Data Vitals - Most Recent: Last Vital Signs Temp 36.1 C 01/18/18 04:00 Pulse 73 01/18/18 08:18 Resp 13 01/18/18 05:46 BP 173/75 H 01/18/18 08:19 Pulse Ox 92 L 01/18/18 08:00 Weight - Most Recent: 198.946 kg I&O - Last 24 Hours: Intake & Output 01/17/18 01/18/18 01/18/18 22:59 06:59 14:59 Intake Total 560 Output Total 730 280 Balance -730 280 Lab Results Last 24 Hours: Laboratory Results - last 24 hr 01/17/18 01/18/18 01/18/18 Range/Units 12:55 04:00 04:00 WBC 8.3 (4.5-11.0) K/uL RBC 3.68 L (4.30-5.90) M/uL Hgb 11.5 L (12.0-15.0) g/dL Hct 34.7 L (40.0-54.0) % MCV 94 (80-98) fL MCH 31 (27-31) pg MCHC 33 (32-36) % Plt Count 119 L (150-400) K/uL Puncture Site Right radial Lt radial ABG pH 7.439 7.465 H (7.350-7.450) ABG pCO2 52.8 H 48.8 H (35.0-42.0) mmHg ABG pO2 49.9 L 76.9 (75.0-100.0) mmHg ABG HCO3 35.2 H 34.7 H (22.0-26.0) mmol/L ABG Total CO2 31.5 H 31.1 H (23.0-27.0) mmol/L ABG O2 Saturation 85.9 L 96.1 (95.0-98.0) % ABG O2 Content 14.8 L 15.5 (15.0-23.0) %vol ABG Base Excess 9.7 9.8 mm/L ABG Hemoglobin 12.6 L 11.7 L (13.5-18.0) g/dL ABG Oxyhemoglobin 83.8 94.0 % ABG Carboxyhemoglobin 1.7 H 1.6 (0.0-1.6) % ABG Methemoglobin 0.7 0.6 % Bert Test Passed Passed O2 Delivery Device Cpap Cpap Oxygen Flow Rate L Sodium (140-148) mmol/L Potassium (3.6-5.2) mmol/L Chloride (100-108) mmol/L Carbon Dioxide (21-32) mmol/L Anion Gap (5.0-14.0) mmol/L BUN (7-18) mg/dL Creatinine (0.8-1.3) mg/dL Est Cr Clr Drug Dosing mL/min Estimated GFR (MDRD) (>60) Glucose (74-106) mg/dL Calcium (8.5-10.1) mg/dL Phosphorus (2.5-4.9) mg/dL Total Bilirubin (0.2-1.0) mg/dL AST (15-37) U/L ALT (12-78) U/L Alkaline Phosphatase (46-116) U/L NT-Pro-B Natriuret Pep (5-125) pg/mL Total Protein (6.4-8.2) g/dL Albumin (3.4-5.0) g/dL Globulin (2.3-3.5) g/dL Albumin/Globulin Ratio (1.2-2.2) 01/18/18 Range/Units 04:00 WBC (4.5-11.0) K/uL RBC (4.30-5.90) M/uL Hgb (12.0-15.0) g/dL Hct (40.0-54.0) % MCV (80-98) fL MCH (27-31) pg MCHC (32-36) % Plt Count (150-400) K/uL Puncture Site ABG pH (7.350-7.450) ABG pCO2 (35.0-42.0) mmHg ABG pO2 (75.0-100.0) mmHg ABG HCO3 (22.0-26.0) mmol/L ABG Total CO2 (23.0-27.0) mmol/L ABG O2 Saturation (95.0-98.0) % ABG O2 Content (15.0-23.0) %vol ABG Base Excess mm/L ABG Hemoglobin (13.5-18.0) g/dL ABG Oxyhemoglobin % ABG Carboxyhemoglobin (0.0-1.6) % ABG Methemoglobin % Bert Test O2 Delivery Device Oxygen Flow Rate L Sodium 139 L (140-148) mmol/L Potassium 4.0 (3.6-5.2) mmol/L Chloride 99 L (100-108) mmol/L Carbon Dioxide 29 (21-32) mmol/L Anion Gap 15.0 H (5.0-14.0) mmol/L BUN 24 H (7-18) mg/dL Creatinine 0.8 (0.8-1.3) mg/dL Est Cr Clr Drug Dosing 98.19 mL/min Estimated GFR (MDRD) > 60 (>60) Glucose 126 H (74-106) mg/dL Calcium 8.0 L (8.5-10.1) mg/dL Phosphorus 3.4 (2.5-4.9) mg/dL Total Bilirubin 0.9 (0.2-1.0) mg/dL AST 33 (15-37) U/L ALT 36 (12-78) U/L Alkaline Phosphatase 56 (46-116) U/L NT-Pro-B Natriuret Pep 42 (5-125) pg/mL Total Protein 6.6 (6.4-8.2) g/dL Albumin 2.6 L (3.4-5.0) g/dL Globulin 4.0 H (2.3-3.5) g/dL Albumin/Globulin Ratio 0.7 L (1.2-2.2) Med Orders - Current: Current Medications Albuterol/Ipratropium (Duoneb 3.0-0.5 Mg/3 Ml) 3 ml NEB Q2H PRN PRN Reason: Wheezing Last Admin: 01/15/18 18:40 Dose: 3 ml Bisacodyl (Dulcolax) 10 mg PO BID [facility] Last Admin: 01/18/18 08:18 Dose: 10 mg Celecoxib (Celebrex) 200 mg PO DAILY@0800 [facility] Last Admin: 01/18/18 08:12 Dose: 200 mg Dextrose/Water (Dextrose 50% In Water) 50 ml IVPUSH ONETIME PRN PRN Reason: ACCUCHECK LESS THAN 70 Diphenhydramine HCl (Benadryl) 25 - 50 mg IVPUSH Q4H PRN PRN Reason: ITCHING Docusate Sodium (Colace) 100 mg PO BID [facility] Last Admin: 01/18/18 08:17 Dose: 100 mg Furosemide (Lasix) 10 mg IVPUSH BID@0800,1800 [facility] Last Admin: 01/18/18 08:14 Dose: 10 mg Glucagon (Glucagen) 1 mg IM ONETIME PRN PRN Reason: ACCUCHECK LESS THAN 70 Heparin Sodium (Porcine) (Heparin Sodium) 5,000 units SUBCUT Q8H [facility] Last Admin: 01/18/18 08:13 Dose: 5,000 units Hydroxyzine HCl (Vistaril) 75 - 100 mg IM Q4H PRN PRN Reason: pain Last Admin: 01/18/18 09:20 Dose: 100 mg Insulin Aspart (Novolog) 0 unit SUBCUT Q6H PRN; Protocol PRN Reason: PER CORRECTIONAL DOSING Labetalol HCl (Normodyne) 5 - 15 mg IVPUSH Q1H PRN PRN Reason: SBP over 160 OR DBP over 95 Lisinopril (Prinivil) 40 mg PO DAILY [facility] Last Admin: 01/18/18 08:19 Dose: 40 mg Lorazepam (Ativan) 0.5 mg IVPUSH Q2H PRN PRN Reason: anxiety Metoclopramide HCl (Reglan) 10 mg IVPUSH Q6H PRN PRN Reason: NAUSEA NOT CONTROL BY ZOFRAN Metoprolol Tartrate (Lopressor) 50 mg PO BID [facility] Last Admin: 01/18/18 08:18 Dose: 50 mg Ondansetron HCl (Zofran) 4 mg IVPUSH Q4H PRN PRN Reason: Nausea/Vomiting Pantoprazole Sodium (Protonix Iv) 40 mg IVPUSH Q24H [facility] Last Admin: 01/17/18 12:46 Dose: 40 mg Discontinued Medications Albuterol/Ipratropium (Duoneb 3.0-0.5 Mg/3 Ml) 3 ml NEB Q4H [facility] Last Admin: 01/18/18 07:48 Dose: 3 ml Cefoxitin Sodium (Mefoxin) Confirm Administered Dose 2 gm .ROUTE .STK-MED ONE Stop: 01/15/18 06:51 Last Admin: 01/15/18 09:45 Dose: 2 gm Celecoxib (Celebrex) 200 mg PO ONETIME ONE Stop: 01/15/18 05:46 Last Admin: 01/15/18 06:04 Dose: 200 mg Ropivacaine 60 ml/Dexamethasone 8 mg/Epinephrine HCl 0.4 mg/ Sodium Chloride 17.6 ml 0 ml NERVRT ASDIRECTED [facility] Last Admin: 01/15/18 08:13 Dose: 100 syringe Cyanocobalamin (Vitamin B12) 1,000 mcg IM ONETIME ONE Stop: 01/17/18 09:01 Last Admin: 01/17/18 08:20 Dose: 1,000 mcg Dexamethasone (Dexamethasone) Confirm Administered Dose 4 mg .ROUTE .STK-MED ONE Stop: 01/15/18 07:15 Ephedrine Sulfate (Ephedrine Sulfate) Confirm Administered Dose 50 mg .ROUTE .STK-MED ONE Stop: 01/15/18 08:11 Fentanyl Citrate (Fentanyl) Confirm Administered Dose 500 mcg .ROUTE .STK-MED ONE Stop: 01/15/18 07:14 Furosemide (Lasix) 20 mg IVPUSH ONETIME ONE Stop: 01/15/18 12:01 Last Admin: 01/15/18 12:15 Dose: 20 mg Furosemide (Lasix) 20 mg IVPUSH ONETIME STA Stop: 01/15/18 18:48 Last Admin: 01/15/18 19:02 Dose: 20 mg Furosemide (Lasix) 20 mg IVPUSH NOW ONE Stop: 01/16/18 02:01 Last Admin: 01/16/18 02:05 Dose: 20 mg Furosemide (Lasix) 20 mg IVPUSH Q12H [facility] Stop: 01/16/18 20:01 Last Admin: 01/16/18 19:30 Dose: 20 mg Furosemide (Lasix) 10 mg IVPUSH ONETIME ONE Stop: 01/17/18 10:01 Last Admin: 01/17/18 10:23 Dose: 10 mg Furosemide (Lasix) 10 mg IVPUSH ONETIME ONE Stop: 01/17/18 18:01 Last Admin: 01/17/18 18:10 Dose: 10 mg Gabapentin (Neurontin) 300 mg PO ONETIME ONE Stop: 01/15/18 05:46 Last Admin: 01/15/18 06:04 Dose: 300 mg Gabapentin (Neurontin) 300 mg PO TID [facility] Last Admin: 01/15/18 14:38 Dose: 300 mg Glycopyrrolate (Robinul) Confirm Administered Dose 1 mg .ROUTE .STK-MED ONE Stop: 01/15/18 07:15 Hydroxyzine HCl (Vistaril) 100 mg IM ONETIME ONE Stop: 01/15/18 11:51 Last Admin: 01/15/18 12:04 Dose: 100 mg Cefoxitin Sodium 2 gm/ Sodium (Chloride) 50 mls @ 100 mls/hr IV ONETIME ONE Stop: 01/15/18 07:44 Last Admin: 01/15/18 07:32 Dose: 100 mls/hr Dextrose/Lactated Ringer's (Dextrose 5%-Lactated Ringers) 1,000 mls @ 100 mls/ hr IV ASDIRECTED [facility] Last Admin: 01/15/18 06:41 Dose: 100 mls/hr Lidocaine HCl/Dextrose (Lidocaine 2 Gm/D5w 500 Ml) 2 gm in 500 mls @ 30 mls/hr IV .[id number] [facility] Stop: 01/16/18 00:09 Last Admin: 01/15/18 12:23 Dose: 2 mg/min, 30 mls/hr Ketamine HCl 100 mg/ Sodium (Chloride) 100 mls @ 21.3 mls/hr IV ASDIRECTED [facility] Insulin Human Regular 100 unit (/ Sodium Chloride) 100 mls @ 0 mls/hr IV TITRATE [facility]YLER; Protocol Lactated Ringer's (Ringers, Lactated) Confirm Administered Dose 1,000 mls @ as directed .ROUTE .STK-MED ONE Stop: 01/15/18 07:18 Dextrose/Lactated Ringer's (Dextrose 5%-Lactated Ringers) 1,000 mls @ 175.004 mls/hr IV ASDIRECTED [facility] Multivitamins/Minerals 10 ml/Thiamine HCl 200 mg/ Chromium/Copper/Manganese/ Seleni/Zn 1 ml/ Dextrose/Lactated Ringer's 1,013 mls @ 174.999 mls/hr IV DAILY@ 1600 [facility] Last Admin: 01/15/18 15:42 Dose: 174.999 mls/hr Cefoxitin Sodium 2 gm/ Sodium (Chloride) 50 mls @ 100 mls/hr IV Q6H [facility] Stop: 01/16/18 14:29 Last Admin: 01/16/18 13:36 Dose: 100 mls/hr Dextrose/Lactated Ringer's (Dextrose 5%-Lactated Ringers) 1,000 mls @ 25 mls/ hr IV ASDIRECTED [facility] Last Admin: 01/16/18 11:56 Dose: 25 mls/hr Magnesium Sulfate 2 gm/ Premix 50 mls @ 25 mls/hr IV Q6H [facility] Stop: 01/18/18 05:59 Last Admin: 01/18/18 03:33 Dose: 25 mls/hr Insulin Aspart (Novolog) 5 unit SUBCUT ONETIME ONE Stop: 01/15/18 10:21 Last Admin: 01/15/18 10:22 Dose: 5 units Ketamine HCl (Ketalar) 35 mg IV ASDIRECTED [facility] Lidocaine HCl (Xylocaine 2%) 150 mg IVPUSH ONETIME ONE Stop: 01/15/18 07:31 Last Admin: 01/15/18 12:24 Dose: Not Given Lidocaine HCl (Xylocaine 2% Jelly) 10 ml MUCMEM STAT ONE Stop: 01/15/18 19:01 Last Admin: 01/15/18 19:56 Dose: Not Given Meperidine HCl (Demerol) 100 mg IM ONETIME ONE Stop: 01/15/18 11:51 Last Admin: 01/15/18 12:04 Dose: 100 mg Miscellaneous Information (Remove Patch) 1 ea TRDERM ONETIME ONE Stop: 01/17/18 10:01 Last Admin: 01/17/18 10:15 Dose: Not Given Neostigmine Methylsulfate (Neostigmine) Confirm Administered Dose 5 mg .ROUTE .STK-MED ONE Stop: 01/15/18 07:15 Scopolamine Patch (Check) 1 each TOP DAILY [facility] Stop: 01/17/18 12:01 Last Admin: 01/17/18 08:21 Dose: Not Given Ondansetron HCl (Zofran) Confirm Administered Dose 4 mg .ROUTE .STK-MED ONE Stop: 01/15/18 07:15 Propofol (Diprivan 20 Ml) Confirm Administered Dose 200 mg .ROUTE .STK-MED ONE Stop: 01/15/18 07:15 Rocuronium [place] (Zemuron) Confirm Administered Dose 50 mg .ROUTE .STK-MED ONE Stop: 01/15/18 07:15 Rocuronium [place] (Zemuron) Confirm Administered Dose 50 mg .ROUTE .STK-MED ONE Stop: 01/15/18 08:45 Scopolamine (Transderm-Scop) 1.5 mg TOP Q72H [facility] Stop: 01/17/18 09:00 Last Admin: 01/15/18 06:04 Dose: 1.5 mg Sodium Chloride (Normal Saline) 500 ml IRR .STK-MED ONE Stop: 01/15/18 09:46 Last Admin: 01/15/18 09:45 Dose: 500 ml Succinylcholine Chloride (Quelicin) Confirm Administered Dose 200 mg .ROUTE .STK -MED ONE Stop: 01/15/18 07:15 - Exam Quality Assessment: No: Supplemental Oxygen General: Alert, Oriented, Cooperative, No Acute Distress Neck: Supple Lungs: Normal Respiratory Effort GI/Abdominal Exam: No Distention Extremities: No Pedal Edema Skin: Warm, Dry Psy/Mental Status: Alert, Normal Affect Consult PN Assessment/Plan POD#: 3 Procedures: Procedures BLOOD TYPING SEROLOGIC ABO (10/16/17) BLOOD TYPING SEROLOGIC RH(D) (10/16/17) COMPLETE CBC W/AUTO DIFF WBC (07/04/16) COMPREHEN METABOLIC PANEL (07/04/16) CT HEAD/BRAIN W/O DYE (05/05/16) EMERGENCY DEPT VISIT (07/04/16) EMERGENCY DEPT VISIT (07/04/16) EMERGENCY DEPT VISIT (05/05/16) EMERGENCY DEPT VISIT (03/04/16) EMERGENCY DEPT VISIT (08/14/15) HYDRATE IV INFUSION ADD-ON (05/05/16) HYDRATION IV INFUSION INIT (05/05/16) INSERT TEMP BLADDER CATH (07/04/16) RBC ANTIBODY SCREEN (10/16/17) ROUTINE VENIPUNCTURE (07/04/16) URINALYSIS AUTO W/SCOPE (07/04/16) (1) Congestive heart failure SNOMED Code(s): 18835822 Code(s): I50.9 - HEART FAILURE, UNSPECIFIED Current Visit: Yes Qualifiers: Heart failure type: diastolic Heart failure chronicity: acute Qualified Code(s): I50.31 - Acute diastolic (congestive) heart failure (2) Acute respiratory failure with hypoxia and hypercapnia SNOMED Code(s): 417310264 Code(s): J96.01 - ACUTE RESPIRATORY FAILURE WITH HYPOXIA; J96.02 - ACUTE RESPIRATORY FAILURE WITH HYPERCAPNIA Current Visit: Yes Problem List Initiated/Reviewed/Updated: Yes My Orders Last 24 Hours: My Active Orders 01/17/18 14:29 Convert IV to Saline Lock [OM.PC] Routine 01/18/18 09:37 Discontinue Telemetry Monitoring [Cardiac Monitoring Discontinue] [RC] Click to Edit 01/18/18 09:38 Transfer Patient (Change bed) [ADT] Routine 01/18/18 10:00 Albuterol/Ipratropium [DuoNeb 3.0-0.5 MG/3 ML] 3 ml NEB QID Plan: ASSESSMENT AND PLAN - Acute congestive heart failure, probably diastolic - patient off supplemental oxygen as of this morning. He did require some overnight with his C Pap machine. Volume status seems appropriate at this time. Blood gases show improving PCO2. -Transition to oral diuresis -Close monitoring of urine output -supplement oxygen -CPAP at night -Repeat labs in the morning Acute respiratory failure with hypoxia and hypercapnia - likely secondary to congestive heart failure. PCO2 is stable compared to yesterday and with his normal pH this is probably his baseline with a PCO2 of around 50. -CPAP tonight and with -supplement oxygen as needed Obstructive sleep apnea -patient had not been tolerating his machine and mask in the past but has been doing well during the hospital stay. -Continue C Pap -Consider addition of supplemental oxygen overnight Morbid obesity status post gastric bypass surgery - pain well-controlled. -Postoperative cares per surgical team Type 2 diabetes mellitus - Hemoglobin A1c 6.9. Currently on sliding scale insulin and sugars well-controlled. -Continue current management The patient will likely be ready for discharge tomorrow. He will be transferred out of the intensive care unit today. The hospitalist team will sign off at this time but these feel free to contact us if there are additional questions about management. Roberth Quijano MD
[2018-01-18] MEDS: Pantoprazole 40 MG Vial IVPUSH SCH (12:48)
[2018-01-19] MEDS: Heparin Sodium 5,000 Units/ML Vial SUBCUT SCH ×2 (00:50→07:25)
[2018-01-19 07:20] VITALS: BP 115/66
[2018-01-19] MEDS: Celecoxib 200 MG Cap PO SCH (07:25)
[2018-01-19] MEDS: Albuterol/Ipratropium 3.0-0.5 MG/3 ML Neb Soln NEB SCH (07:35)
--- NOTE | 2018-01-19 08:50 | DISCH ---
ADMISSION DIAGNOSES: 1. Morbid obesity. 2. Hypertension. 3. Hyperlipidemia. 4. Obstructive sleep apnea. 5. Gastroesophageal reflux disease. 6. Idiopathic peripheral neuropathy. 7. Spondylosis of lumbar region. 8. Major depressive disorder. 9. Joint pain. DISCHARGE DIAGNOSES: Laparoscopic Bc-en-Y gastric bypass surgery, liver biopsy, and small bowel resection for morbid obesity, hepatomegaly, and immobile small bowel. Date of surgery, 01/15/2018. HISTORY: Gareth Mares is a 62-year-old male with a longstanding history of morbid obesity and increasing comorbidities. After preoperative evaluation and discussion of possible risks and possible complications, he wished to proceed with surgical procedure. HOSPITAL COURSE: Gareth had his surgery on 01/15/2018. He had no operative complications. On postoperative day #1, he was transferred to ICU for low oxygen levels and inability to add oxygen to his present CPAP. He was transferred to ICU, was put on a BiPAP machine, and Internal Medicine was consulted. He was on 4 L of O2. Also, he was given Lasix 10 mg IV at 8 a.m. and 6 p.m. He was continued on the BiPAP, and they were able to get oxygen supplemented into the CPAP. He was transferred to [address] [place] [address]. He had no complications. He tolerated a step-2 gastric bypass diet without cereal. His magnesium was replaced. He was able to be discharged to home. Activity was good. Vital signs were stable. Pain was controlled. He had enough oral intake. He was wearing his CPAP with 4 L of O2 piped in while sleeping at night. He did receive dietary instructions prior to discharge. PHYSICAL EXAMINATION: GENERAL: Gareth Mares is a pleasant 62-year-old male. VITAL SIGNS: Stable. HEENT: Negative. NECK: Supple. HEART: Regular rate and rhythm. LUNGS: Clear. ABDOMEN: Sutures in place. Abdominal binder is on. EXTREMITIES: Without peripheral edema. DISPOSITION: Discharged to home. CONDITION: Stable. ACTIVITY: Walk 6 times daily. DISCHARGE DIET: Step-2 gastric bypass diet without cereal. DISCHARGE INSTRUCTIONS: Special instructions; 1. Wear abdominal binder. 2. Use incentive spirometer 10 times every hour while awake for 1 week. FOLLOWUP APPOINTMENT: On 01/27/2018 at 1 p.m. at [facility] with Kristina Baird PA-C. SERVICES: Home O2 during night, piped into CPAP machine, 4 L. MEDICATIONS: He is to resume; 1. Lisinopril 40 mg p.o. b.i.d. 2. Lopressor 40 mg p.o. b.i.d. 3. Acetaminophen 1000 mg p.o. q.6 hours. 4. Celebrex 200 mg p.o. daily.
[2018-01-19] MEDS: Lisinopril 20 MG Tab PO SCH (09:53)
[2018-01-19] MEDS: Metoprolol Tartrate 50 MG Tab PO SCH (09:53)
[2018-01-19] MEDS: Docusate Sodium 100 MG Cap PO SCH (09:54)
[2018-01-19] MEDS: Bisacodyl 5 MG Tab PO SCH (09:54)
--- NOTE | 2018-01-19 12:57 | OR ---
DATE OF PROCEDURE: 01/15/2018 PREOPERATIVE DIAGNOSIS: Morbid obesity. POSTOPERATIVE DIAGNOSES: 1. Morbid obesity. 2. Marked hepatomegaly. 3. Extremely thickened small bowel mesentery resulting in poorly mobile small bowel requiring resectional procedure to facilitate an adequate tension-free gastrojejunostomy. OPERATIVE PROCEDURES: Diagnostic laparoscopy with; 1. Laparoscopic Bc-en-Y gastric bypass with long-limb gastroenterostomy (24668). 2. Gonzales-Cut needle liver biopsy (70117). 3. Small bowel resection (13308). ANESTHESIA: General. INFANT CHILDCARE PROVIDER: Kristina Baird PA-C. INDICATIONS FOR PROCEDURE: This is a 62-year-old male presenting with longstanding morbid obesity and increasingly significant comorbidities. After preoperative evaluation and discussion, he wished to proceed with a gastric bypass procedure. Potential risks of the procedure including bleeding, infection, leaks from various GI tract closures, as well as the possibility of cardiopulmonary, septic, or hemorrhagic complications leading to were discussed, and the patient wishes to proceed. DETAILS OF PROCEDURE: The patient was taken to the operating room and placed in a supine position. After general endotracheal anesthesia was induced, he was converted to a lithotomy position, and the abdomen was prepped and draped. At 15 cm inferior and 5 cm left of the xiphoid process, a transverse incision was made, and the peritoneal cavity was entered under direct vision with an Optiview trocar and inflated to 15 mmHg pressure with CO2. Laparoscope was then reinserted. No underlying trocar insertion site injuries were seen. Following this, 5 additional trocars were placed across the upper and mid abdomen. Bilateral subcostal transversus abdominis plane blocks were then placed using standard solution and injection of standard solution bilaterally. The liver was noted to be markedly enlarged and grossly fatty infiltrated. Gonzales-Cut needle biopsy was obtained from the left lobe of the liver. Minimal bleeding from the biopsy sites was controlled with electrocautery. The omentum was then divided in the midline at the level of the transverse colon. This allowed identification of the small bowel to the ligament of Treitz. Small bowel was then traced out 100 cm distal to that point. The small bowel was noted to be extremely immobile related to quite an amount of thickening of the small bowel mesentery. Given this, to facilitate improved mobility of the Bc limb, roughly 10 cm of the biliopancreatic limb of the small bowel was then excised. The underlying mesentery of that section was divided with Harmonic scalpel. The bowel was then divided with a ZAHIRA stapler. The Bc limb was then traced out 200 cm distal to that point, where the [id number] enteroenterostomy was then accomplished with an internal firing of the Endo-ZAHIRA 60 mm stapler. The common opening was closed transversely with the same stapler, angles anastomosed, and the mesenteric defect approximated with some 0 Ethibond stitch along with 4 mL of fibrin sealant. The limb was then mobilized upward and was able to be brought up to the area of the esophagogastric junction with relatively little tension. The liver was then retracted anteriorly. The patient was noted to have no significant hiatal hernia. The gastrointestinal balloon catheter was inflated to 15 mL and pulled up snugly against the EG junction. Gastric wall over the apex balloon was then marked with electrocautery, balloon catheter deflated and pulled up into the esophagus. The lesser omental tissue adjacent to the gastric cardia was then divided with transverse firing of the ZAHIRA stapler. The stomach was quite thick and given this, first two firings of the formation of the gastric pouch were done with black loads. The remaining ZAHIRA loads up to and through the angle of His with purple loads. At that point, the pouch was examined and both staple lines were found to be intact. The divided end of the Bc limb was then opened and the main body of the EEA stapler passed several centimeters into the lumen of small bowel, brought up the anvil and united with it, thus creating the gastrojejunostomy. Upon removal of the stapler, double donuts of mucosa were noted within it. The small bowel was closed off with a vascular staple line. Gastrojejunostomy was reinforced with some 3-0 Vicryl seromuscular stitch along with fibrin sealant. A leak test was accomplished with injection of 120 mL of air in the gastric pouch while submerged with cefoxitin-containing saline solution. No leaks were identified. A single Armen-Alamo drain was taken out through the left lateral trocar site and placed in the area of the gastric pouch and from there up in the splenic fossa. The trocars were then sequentially removed and the peritoneal cavity deflated. The incision was closed using 4-0 Vicryl skin stitch, which was also used to fix the drain in place. Physician salon shampoo assistant, Kristina Baird, played an essential role in assisting in this case, helping to position the patient, retract structures as needed, as well as suturing and cutting sutures when indicated. Her presence improved patient safety and decreased the operative time. Víctor Gutierres MD /[id number]
--- NOTE | 2018-01-19 13:39 | PN ---
DATE OF SERVICE: 01/18/2018 The patient has been afebrile, still somewhat hypertensive wherein his trial of CPAP was done. The O2 sats were in 85% range with a PO2 in the upper 40s. This was likely related to inability to wear CPAP machine to receive supplemental oxygen and will try again today. He need to be on BiPAP overnight with 30% FiO2 in order to keep adequate O2 sats. Otherwise oral intake little bit better. Labs otherwise not showing significant problems. Well work on respiratory issues today and try to increase his oral intake somewhat. Well give him some bowel stimulation today as well. Víctor Gutierres MD /[id number]
--- NOTE | 2018-01-20 07:49 | PN ---
DATE OF SERVICE: 01/16/2018 The patient is postoperative day #1 from a Bc-en-Y gastric bypass. In the evening, he was noted to become more somnolent and blood gas showed significant CO2 retention. He was transferred to ICU and was placed on BiPAP and presently is doing well on that regimen. Blood gas this morning showed pH of 7.41, pCO2 of 53, PO2 of 70, and O2 saturation of 95%. The patient is alert and appears to be quite comfortable. We did not do an upper GI x-ray, but I think we can forego that at this point. He will begin a step-1 diet today. The additional primary finding on him over the last 24 hours is the need to be diuresed. He had a net diuresis of about 2 L and presently has an IV running. Keep open and and remain good urine output. The patient probably came into the operating room little bit overloaded in terms of fluid on his own, prior to surgery. The patient, otherwise, appears to be doing well at this point. The creatinine is actually down a little bit from yesterday, from 1.3 to 1.2. Blood sugar is 173 this morning and has been running in the 150 to 170 range ID do not require coverage. The plan will be to wean the patient off BiPAP with the aid of Dr. Quijano today. Otherwise, we will get him up and moving and with a step-1 diet for today. Víctor Gutierres MD /[id number]
--- NOTE | 2018-01-20 07:58 | PN ---
DATE OF SERVICE: 01/17/2018 SUBJECTIVE: The patient had T-max of 99. Vital signs have been stable, heart rate in the 70s and 80s. Blood pressures in the 140s/50-70 range. He is tolerating the BiPAP overnight med PABLO is down to 1360cc net diuresis, creatinine was satisfactorily down a little bit at 1.0. He tolerated the C-PAP once again and wore the BiPAP once again overnight. He is turning himself into CO2 retention pattern in terms of blood gases with a pH of 7.44, PCO2 of 54, PO2 of 71, and CO2 on the chemistries 35. Blood sugars have been running in the 120- 140 range and not requiring coverage. He did get up and walk yesterday. Plan today will be to go to step-2 diet and encourage increased oral intake. Well try transitioning over to his own CPAP and check some blood gas as well and make sure were doing ok in that regard give some additional Lasix to help augment diuresis. Maximize activity and work with pulmonary toilet and shower as needed. Víctor Gutierres MD /[id number]
== END 2018-01-19 11:44 | disposition home or self-care (01) | DRG 619 ==
LOC: JP.MS 05:09 → JP.SDS 05:09 → EDSTATUS 07:15 → JP.2SS 11:51 → JP.ICU 19:42 → JP.MS 01-18 10:40
PROVIDERS: ADMIT Surgery; ATTEND Surgery
PROC: 0DB84ZZ Excision of Small Intestine, Percutaneous Endoscopic Approach (ICD-10-PCS; principal; 2018-01-15)
PROC: 0D164ZA Bypass Stomach to Jejunum, Percutaneous Endoscopic Approach (ICD-10-PCS; principal; 2018-01-15)
PROC: 0FB24ZX Excision of Left Lobe Liver, Percutaneous Endoscopic Approach, Diagnostic (ICD-10-PCS; principal; 2018-01-15)
PROC: 5A09357 Assistance with Respiratory Ventilation, Less than 24 Consecutive Hours, Continuous Positive Airway Pressure (ICD-10-PCS; 2018-01-16)
DX: E66.01 Morbid (severe) obesity due to excess calories (principal); I50.31 Acute diastolic (congestive) heart failure; J96.02 Acute respiratory failure with hypercapnia; J96.01 Acute respiratory failure with hypoxia; Z68.44 Body mass index [BMI] 60.0-69.9, adult; E78.5 Hyperlipidemia, unspecified; G47.33 Obstructive sleep apnea (adult) (pediatric); K21.9 Gastro-esophageal reflux disease without esophagitis; G60.9 Hereditary and idiopathic neuropathy, unspecified; M47.816 Spondylosis without myelopathy or radiculopathy, lumbar region; F32.9 Major depressive disorder, single episode, unspecified; M25.50 Pain in unspecified joint; R16.0 Hepatomegaly, not elsewhere classified; K59.8 Other specified functional intestinal disorders; G47.31 Primary central sleep apnea; H91.90 Unspecified hearing loss, unspecified ear; E78.00 Pure hypercholesterolemia, unspecified; G89.29 Other chronic pain; I11.0 Hypertensive heart disease with heart failure; E11.9 Type 2 diabetes mellitus without complications; Z79.899 Other long term (current) drug therapy; Z88.8 Allergy status to other drugs, medicaments and biological substances; Z87.891 Personal history of nicotine dependence
CPT/HCPCS: 36415; 36600; 71045; 71045-26; 80048; 80053; 82803; 82962; 83036; 83735; 83880; 84100; 85027; 86850; 86900; 86901; 88307; 88313; 94640; 94660; 94762; A9270-GY; C9113; J0171; J0330; J0694; J1100; J1644; J1940; J2001; J2175; J2405; J2704; J2710; J2795; J3010; J3410; J3411; J3420; J3475; J3490; J7030; J7042; J7050; J7120; J7620-GY

== ENCOUNTER 2023-05-01 07:29 | Day surgery (SDC) | payer MEDICARE ==
[~2023-05-01 07:29] MED LIST changes: +Bupivacaine 0.5%/EPINEPHrine 1:200,000 50 ML MDV ONE; +Lidocaine 0.5% 50 ML SDV ONE; +Midazolam 1 MG/ML 2 ML SDV ONE; +Propofol 200 MG/20 ML SDV ONE; -Ropivacaine 60 ML, Dexamethasone 8 MG, EPINEPHrine 0.4 MG, Sodium Chloride 0.9% 17.6 ML NERVRT SCH; +fentaNYL 100 MCG/2 ML SDV ONE
[2023-05-01] MEDS ORDERED: Sodium Chloride 0.9% 1,000 ML IV SCH (08:30)
[2023-05-01] MEDS ORDERED: ceFAZolin 2 GM in Premix Bag 1 BAG IV ONE (09:10)
[2023-05-01] MEDS ORDERED: metroNIDAZOLE/Normal Saline 500 MG in Premix Bag 1 BAG IV ONE (09:10)
[2023-05-01] MEDS ORDERED: Propofol 200 MG/20 ML SDV ONE ×2 (10:18→10:42)
[2023-05-01] MEDS ORDERED: Lidocaine 1% 50 ML MDV ONE (10:25)
[2023-05-01] MEDS ORDERED: fentaNYL 100 MCG/2 ML SDV ONE (10:35)
[2023-05-01] MEDS ORDERED: Midazolam 1 MG/ML 2 ML SDV ONE (10:43)
[2023-05-01] MEDS ORDERED: Acetaminophen/HYDROcodone 325-5 MG Tab PO PRN (11:54)
[2023-05-01 13:09] VITALS: BP 169/79; PULSE 45
== END 2023-05-01 13:25 | disposition home or self-care (01) ==
LOC: JP.SDS 07:29
PROVIDERS: ATTEND Surgery
DX: K40.91 Unilateral inguinal hernia, without obstruction or gangrene, recurrent (principal); I10 Essential (primary) hypertension; I08.1 Rheumatic disorders of both mitral and tricuspid valves; R00.1 Bradycardia, unspecified; K21.9 Gastro-esophageal reflux disease without esophagitis; E78.5 Hyperlipidemia, unspecified; F32.5 Major depressive disorder, single episode, in full remission; G47.33 Obstructive sleep apnea (adult) (pediatric); G47.31 Primary central sleep apnea; Z79.899 Other long term (current) drug therapy; Z88.8 Allergy status to other drugs, medicaments and biological substances; Z87.891 Personal history of nicotine dependence
CPT/HCPCS: A9270-GY; C1713; C1781; J0171; J0690; J1100; J2001; J2250; J2704; J2795; J3010; J3490; J7030

== ENCOUNTER 2023-06-20 17:55 | Inpatient (IN) | payer MEDICARE ==
[2023-06-20] MEDS ORDERED: MVI, Adult with Vitamin K 10 ML in Sodium Chloride 0.9% 1,000 ML IV ONE ×2 (18:12)
[2023-06-20] MEDS ORDERED: Thiamine 100 MG in Sodium Chloride 0.9% 100 ML IV SCH (18:15)
[2023-06-20] MEDS ORDERED: Dextrose 5%-Lactated Ringers 1,000 ML IV SCH (18:15)
[2023-06-20] MEDS ORDERED: Pantoprazole 40 MG Vial IVPUSH SCH (18:15)
[2023-06-20 18:36] LABS: BASOPHILS ABSOLUTE AUTO 0.04 K/uL (0.00-0.10); BASOPHILS PERCENT AUTO 0.6 % (0.1-1.3); EOSINOPHILS ABSOLUTE AUTO 0.04 K/uL (0.00-0.40); EOSINOPHILS PERCENT AUTO 0.6 % (0.0-5.4); HEMATOCRIT 35.8 % (38.4-49.7); HEMOGLOBIN 12.1 g/dL (12.9-16.9); IMMATURE GRAN PERCENT AUTO 0.2 % (0.0-0.7); LYMPHOCYTES ABSOLUTE AUTO 1.88 K/uL (0.8-3.3); LYMPHOCYTES PERCENT AUTO 28.3 % (11.4-47.7); MEAN CORPUSCULAR HGB CONC 33.8 g/dL (31.6-35.5); MEAN CORPUSCULAR VOLUME 88.6 fL (81.4-99.0); MONOCYTES ABSOLUTE AUTO 0.49 K/uL (0.20-0.90); MONOCYTES PERCENT AUTO 7.4 % (3.3-12.6); NEUTROPHILS ABSOLUTE AUTO 4.18 K/uL (1.0-7.6); NEUTROPHILS PERCENT AUTO 62.9 % (40.0-78.1); PLATELET COUNT,PLT 168 K/uL (130-375); RED BLOOD CELL COUNT 4.04 M/uL (4.14-5.76); WHITE BLOOD CELL COUNT,WBC 6.6 K/uL (3.2-11.0)
[2023-06-20 18:37] LABS: IMMATURE GRAN ABSOLUTE AUTO 0.01 K/uL (0.00-0.23)
[2023-06-20 18:58] LABS: IRON,FE 34 ug/dL (65-175); PERCENT FE SATURATION 13 % (20-55); TOTAL IRON BINDING CAPACITY 262 ug/dl (250-450)
[2023-06-20] MEDS ORDERED: Sodium Ferric Gluconate Cmplex 250 MG in Sodium Chloride 0.9% 100 ML IV ONE (19:04)
[2023-06-20 19:05] LABS: INR 1.1; PROTHROMBIN TIME 11.5 sec (9.2-10.6)
[2023-06-20 19:11] LABS: CORONAVIRUS COVID-19 NAA NEGATIVE (NEGATIVE); INFLUENZA A NAA NEGATIVE (NEGATIVE); INFLUENZA B NAA NEGATIVE (NEGATIVE); RESPIRATORY SYNCYTIAL VIR NAA NEGATIVE (NEGATIVE)
[2023-06-20 19:21] LABS: A/G RATIO 1.1 (1.2-2.2); ALANINE AMINOTRANSFERASE,ALT 23 U/L (12-78); ALBUMIN 3.1 g/dL (3.4-5.0); ALKALINE PHOSPHATASE 62 U/L (46-116); ANION GAP 5.7 mmol/L (5.0-14.0); ASPARTATE AMNIOTRANSFERASE,AST 15 U/L (15-37); BILIRUBIN TOTAL 0.4 mg/dL (0.2-1.0); BLOOD UREA NITROGEN,BUN 9 mg/dL (7-18); CALCIUM 8.1 mg/dL (8.5-10.1); CARBON DIOXIDE,CO2 30 mmol/L (21-32); CHLORIDE,CL 104 mmol/L (100-108); CREATININE 0.7 mg/dL (0.8-1.3); ESTIMATED GFR 102 mL/min (>60); FERRITIN 119 ng/ml (8-388); GLUCOSE RANDOM 85 mg/dL (74-106); MAGNESIUM 1.6 mg/dL (1.8-2.4); PHOSPHORUS 4.3 mg/dL (2.5-4.9); POTASSIUM,K 4.3 mmol/L (3.6-5.2); SODIUM,NA 140 mmol/L (140-148)
[2023-06-20 19:27] LABS: EST CRCL DRUG DOSING (CG) 103.81 mL/min
[2023-06-20] MEDS: Folic Acid 50 MG/10 ML MDV IV SCH (19:45)
[2023-06-20] MEDS ORDERED: Magnesium Sulfate/Water 2 GM in Premix Bag 1 BAG IV ONE (19:49)
[2023-06-21 06:09] LABS: HEMATOCRIT 36.2 % (38.4-49.7); HEMOGLOBIN 12.4 g/dL (12.9-16.9); MEAN CORPUSCULAR HEMOGLOBIN 30.3 pg (31.6-35.5); MEAN CORPUSCULAR HGB CONC 34.3 g/dL (31.6-35.5); MEAN CORPUSCULAR VOLUME 88.5 fL (81.4-99.0); RED BLOOD CELL COUNT 4.09 M/uL (4.14-5.76); WHITE BLOOD CELL COUNT,WBC 5.4 K/uL (3.2-11.0)
[2023-06-21 06:26] LABS: ALANINE AMINOTRANSFERASE,ALT 20 U/L (12-78); ALKALINE PHOSPHATASE 60 U/L (46-116); ANION GAP 8.8 mmol/L (5.0-14.0); ASPARTATE AMNIOTRANSFERASE,AST 14 U/L (15-37); BILIRUBIN TOTAL 0.4 mg/dL (0.2-1.0); BLOOD UREA NITROGEN,BUN 9 mg/dL (7-18); CARBON DIOXIDE,CO2 27 mmol/L (21-32); CHLORIDE,CL 104 mmol/L (100-108); CREATININE 0.7 mg/dL (0.8-1.3); EST CRCL DRUG DOSING (CG) 103.81 mL/min; ESTIMATED GFR 102 mL/min (>60); GLUCOSE RANDOM 97 mg/dL (74-106); POTASSIUM,K 3.7 mmol/L (3.6-5.2); SODIUM,NA 140 mmol/L (140-148)
[2023-06-21] MEDS ORDERED: Dextrose 5%-Lactated Ringers 1,000 ML IV SCH (08:30)
[2023-06-21] MEDS ORDERED: Thiamine 100 MG in Sodium Chloride 0.9% 100 ML IV SCH (11:00)
[2023-06-21] MEDS: Enoxaparin 30 MG/0.3 ML Syringe SUBCUT SCH (11:22)
[2023-06-21] MEDS ORDERED: Folic Acid 1 MG in Sodium Chloride 0.9% 50 ML IV SCH (12:00)
[2023-06-21] MEDS: Folic Acid 50 MG/10 ML MDV IV SCH (13:06)
[2023-06-21] MEDS ORDERED: Acetaminophen 500 MG Tab PO PRN (15:12)
[2023-06-21] MEDS ORDERED: Pantoprazole 40 MG Vial IVPUSH SCH (21:00)
[2023-06-21] MEDS ORDERED: Multivitamins with Iron Tab.Chew CHEW SCH (21:00)
[2023-06-22 05:58] VITALS: BP 136/80
[2023-06-22 06:15] LABS: HEMATOCRIT 36.1 % (38.4-49.7); HEMOGLOBIN 12.3 g/dL (12.9-16.9); MEAN CORPUSCULAR HEMOGLOBIN 29.8 pg (31.6-35.5); MEAN CORPUSCULAR HGB CONC 34.1 g/dL (31.6-35.5); MEAN CORPUSCULAR VOLUME 87.4 fL (81.4-99.0); RED BLOOD CELL COUNT 4.13 M/uL (4.14-5.76)
[2023-06-22 06:27] LABS: ANION GAP 7.8 mmol/L (5.0-14.0); CALCIUM 8.2 mg/dL (8.5-10.1); CREATININE 0.7 mg/dL (0.8-1.3); EST CRCL DRUG DOSING (CG) 103.81 mL/min; MAGNESIUM 1.6 mg/dL (1.8-2.4); POTASSIUM,K 3.6 mmol/L (3.6-5.2)
[2023-06-22] MEDS: Enoxaparin 30 MG/0.3 ML Syringe SUBCUT SCH (08:31)
[2023-06-22] MEDS ORDERED: Magnesium Sulfate/Water 2 GM in Premix Bag 1 BAG IV ONE (09:00)
[2023-06-22] MEDS ORDERED: Folic Acid 1 MG Tab PO SCH (10:00)
[2023-06-22] MEDS ORDERED: Thiamine 100 MG Tab PO SCH (10:00)
[2023-06-22 11:42] VITALS: PULSE 59
[2023-06-22] MEDS ORDERED: Pantoprazole 40 MG Tab.CR PO SCH (21:00)
== END 2023-06-22 14:00 | disposition home or self-care (01) | DRG 392 ==
LOC: JP.MS 17:55
PROVIDERS: ADMIT Student in an Organized Health Care Education/Training Program; ATTEND Student in an Organized Health Care Education/Training Program
DX: R10.9 Unspecified abdominal pain (principal); E44.1 Mild protein-calorie malnutrition; E83.42 Hypomagnesemia; D50.9 Iron deficiency anemia, unspecified; H91.90 Unspecified hearing loss, unspecified ear; E78.00 Pure hypercholesterolemia, unspecified; I10 Essential (primary) hypertension; G47.30 Sleep apnea, unspecified; M54.9 Dorsalgia, unspecified; G89.29 Other chronic pain; F32.A Depression, unspecified; E66.9 Obesity, unspecified; Z98.84 Bariatric surgery status; Z98.890 Other specified postprocedural states; Z68.25 Body mass index [BMI] 25.0-25.9, adult
CPT/HCPCS: 0241U; 36415; 80048; 80053; 82607; 82728; 83550; 83605; 83735; 84100; 85025; 85027; 85610; 93005; A9270-GY; C9113; J1650; J2916; J3411; J3475; J3490; J7030; J7121